=== PATIENT | male | born 1970 | race Caucasian/White ===

== ENCOUNTER 2022-06-17 10:37 | Emergency (ER) | payer OTHER ==
[2022-06-17 11:08] LABS: BASO # 0.04 K/mm3 (0.02-0.10); EOS % 0.9 % (0.0-4.0); HEMATOCRIT 42.9 % (42.0-52.0); HEMOGLOBIN 14.3 g/dL (13.5-18.0); LYMPH# 3.03 K/mm3 (1.50-4.00); MEAN CELL VOLUME 93 fl (78-100); MEAN CORPUSCULAR HEMOGLOBIN 31 pg (27-31); MEAN CORPUSCULAR HGB CONC 33 g/dL (33-37); MEAN PLATELET VOLUME 10.9 fl (7.4-10.4); MONO # 0.96 K/mm3 (0.20-0.80); NEU # 6.64 K/mm3 (1.40-6.50); PLATELET COUNT 202 K/mm3 (130-400); RED BLOOD COUNT 4.62 M/mm3 (4.20-5.60); RED CELL DISTRIBUTION WIDTH 11.8 % (11.5-14.5); WHITE BLOOD COUNT 10.8 K/mm3 (4.8-10.8)
[2022-06-17 11:13] LABS: ALBUMIN 4.1 g/dL (3.5-5.0)
[2022-06-17 11:15] LABS: CALCIUM 9.2 mg/dL (8.3-10.5)
[2022-06-17 11:16] LABS: TOTAL PROTEIN 7.6 g/dL (6.4-8.3)
[2022-06-17 11:18] LABS: TOTAL BILIRUBIN 0.6 mg/dL (0.2-1.2)
[2022-06-17] MEDS ORDERED: ROXICODONE 55 MG/TAB PO (12:07)
[2022-06-17 18:06] VITALS: BP 155/111
== END 2022-06-17 18:00 | disposition short-term general hospital (02) ==
LOC: ED 10:37
PROVIDERS: Nurse Practitioner Family
DX: I26.02 Saddle embolus of pulmonary artery with acute cor pulmonale (principal); Z28.310 Unvaccinated for COVID-19
CPT/HCPCS: J1650; Q9967